=== PATIENT | male | born 1940 | race Hispanic/Latino ===

== ENCOUNTER 2016-12-14 09:36 | Outpatient (CLI) | payer MEDICARE ==
[2016-12-14 09:55] LABS: #Basophils 0.1 thou/uL (0.0-0.2); #Eosinphils 0.1 thou/uL (0.0-0.7); #Lymphocytes 1.3 thou/uL (1.20-3.40); #Monocytes 0.6 thou/uL (0.11-0.59); #Neutrophils 6.8 thou/uL (1.40-6.50); %Basophils 0.8 % (0.0-1.0); %Eosinophils 1.1 % (0.0-10.0); %Lymphocytes 14.9 % (21.0-51.0); %Monocytes 6.9 % (0.0-10.0); %Neutrophils 76.3 % (42.0-75.0); Hemoglobin 12.6 g/dL (14.0-18.0); Mean Corpuscular HGB CONC 33.5 g/dL (32.0-36.0); Mean Corpuscular Hemoglobin 30.1 pg (27.0-31.0); Mean Platelet Volume 7.4 fL (7.4-10.4); Platelet Count 211 thou/uL (130-400); RBC Distribution Width 12.2 % (11.5-14.5); Red Blood Cell (RBC) Count 4.18 mill/uL (4.70-6.10)
[2016-12-14 09:57] LABS: Hemoglobin A1c 6.8 % (4.0-6.0)
[2016-12-14 11:32] LABS: ALT (SGPT) 11 U/L (0-55); AST (SGOT) 10 U/L (5-34); Albumin 3.9 g/dL (3.4-4.8); Alkaline Phosphatase 97 U/L (40-150); Anion Gap 13 mmol/L (10-20); BUN (Urea Nitrogen) 19 mg/dL (8.4-25.7); Bilirubin, Total 0.4 mg/dL (0.2-1.2); Calc. Creatinine Clearance 0 mL/min (70-130); Calcium 9.3 mg/dL (7.8-10.44); Carbon Dioxide 26 mmol/L (23-31); Cardiac Risk 3.6 (Less than 4.5); Chloride 102 mmol/L (98-107); Cholesterol 120 mg/dL (< 200 Desired); Estimated GFR-MDRD 61; Globulin 3.3 g/dL (2.4-3.5); Glucose 152 mg/dL (83-110); HDL Cholesterol 33 mg/dL (>60 Neg Risk); LDL Cholesterol, Calculated 55 mg/dL; Potassium 3.9 mmol/L (3.5-5.1); Protein, Total 7.2 g/dL (5.8-8.1); Sodium 137 mmol/L (136-145); Triglycerides 160 mg/dL (Less than 150)
== END 2016-12-14 09:37 | disposition home or self-care (01) ==
LOC: MADLAB 09:36
PROVIDERS: ATTEND Family Medicine
DX: E11.9 Type 2 diabetes mellitus without complications (principal)
CPT/HCPCS: 36415; 80053; 80061; 83036; 85025

== ENCOUNTER 2017-01-27 09:31 | Outpatient (CLI) | payer MEDICARE ==
[2017-01-27 09:53] LABS: Hemoglobin A1c 6.8 % (4.0-6.0)
[2017-01-27 10:07] LABS: ALT (SGPT) 16 U/L (8-55); AST (SGOT) 12 U/L (5-34); Albumin 3.8 g/dL (3.4-4.8); Alkaline Phosphatase 94 U/L (40-150); Anion Gap 15 mmol/L (10-20); BUN (Urea Nitrogen) 24 mg/dL (8.4-25.7); Bilirubin, Total 0.4 mg/dL (0.2-1.2); Calc. Creatinine Clearance 0 mL/min (70-130); Calcium 9.4 mg/dL (7.8-10.44); Carbon Dioxide 26 mmol/L (23-31); Cardiac Risk 3.4 (Less than 4.5); Chloride 104 mmol/L (98-107); Cholesterol 126 mg/dl (< 200 Desired); Estimated GFR-MDRD 58; Globulin 3.7 g/dL (2.4-3.5); Glucose 152 mg/dL (83-110); HDL Cholesterol 37 mg/dL (>60 Neg Risk); LDL Cholesterol, Calculated 55 mg/dL; Potassium 4.1 mmol/L (3.5-5.1); Protein, Total 7.5 g/dL (5.8-8.1); Sodium 141 mmol/L (136-145); Triglycerides 172 mg/dL (Less than 150)
== END 2017-01-27 09:32 | disposition home or self-care (01) ==
LOC: MADLAB 09:31
PROVIDERS: ATTEND Family Medicine
DX: E11.9 Type 2 diabetes mellitus without complications (principal)
CPT/HCPCS: 36415; 80053; 80061; 83036

== ENCOUNTER 2017-05-12 09:03 | Outpatient (CLI) | payer MEDICARE ==
[2017-05-12 10:29] LABS: Anion Gap 14 mmol/L (10-20); BUN (Urea Nitrogen) 22 mg/dL (8.4-25.7); Calc. Creatinine Clearance 0 mL/min (70-130); Calcium 9.3 mg/dL (7.8-10.44); Carbon Dioxide 27 mmol/L (23-31); Chloride 99 mmol/L (98-107); Estimated GFR-MDRD 55; Glucose 146 mg/dL (83-110); Sodium 136 mmol/L (136-145)
== END 2017-05-12 09:04 | disposition home or self-care (01) ==
LOC: MADLAB 09:03
PROVIDERS: ATTEND Internal Medicine Cardiovascular Disease
DX: E11.9 Type 2 diabetes mellitus without complications (principal); E78.2 Mixed hyperlipidemia; I10 Essential (primary) hypertension
CPT/HCPCS: 36415; 80048

== ENCOUNTER 2021-08-11 02:51 | Emergency (ER) | payer MEDICARE ==
[2021-08-11] MEDS ORDERED: Nitroglycerin 2% Ointment 1 INCH/1 GM Packet ONE (03:17)
[2021-08-11] MEDS ORDERED: Aspirin Chewable 81 MG TAB ONE (03:17)
[2021-08-11 03:21] LABS: #Lymphocytes 0.6 thou/uL (1.20-3.40); #Monocytes 0.5 thou/uL (0.11-0.59); #Neutrophils 13.8 thou/uL (1.40-6.50); %Basophils 0.2 % (0.0-1.0); %Eosinophils 0.3 % (0.0-10.0); %Lymphocytes 3.7 % (21.0-51.0); %Monocytes 3.5 % (0.0-10.0); %Neutrophils 92.3 % (42.0-75.0); Hemoglobin 8.5 g/dL (14.0-18.0); Mean Corpuscular HGB CONC 31.8 g/dL (32.0-36.0); Mean Corpuscular Hemoglobin 26.6 pg (27.0-31.0); Mean Corpuscular Volume 83.6 fL (78.0-98.0); Mean Platelet Volume 4.7 fL (7.4-10.4); Platelet Count 303 thou/uL (130-400); RBC Distribution Width 12.9 % (11.5-14.5); White Blood Cell (WBC) Count 14.9 thou/uL (4.8-10.8)
[2021-08-11 03:44] LABS: ALT (SGPT) 49 U/L (8-55); AST (SGOT) 34 U/L (5-34); Albumin 3.1 g/dL (3.4-4.8); Alkaline Phosphatase 101 U/L (40-110); Anion Gap 19 mmol/L (10-20); BUN (Urea Nitrogen) 92 mg/dL (8.4-25.7); Bilirubin, Total 0.5 mg/dL (0.2-1.2); Calc. Creatinine Clearance 0 mL/min (70-130); Calcium 8.5 mg/dL (7.8-10.44); Carbon Dioxide 15 mmol/L (23-31); Chloride 102 mmol/L (98-107); Globulin 3.3 g/dL (2.4-3.5); Glucose 198 mg/dL (83-110); Magnesium 1.8 mg/dL (1.6-2.6); Protein, Total 6.4 g/dL (5.8-8.1); Sodium 129 mmol/L (136-145)
[2021-08-11 04:06] LABS: Potassium 6.6 mmol/L (3.5-5.1)
[2021-08-11] MEDS ORDERED: Dextrose 50% Abboject 50 ML SYRINGE ONE (04:22)
[2021-08-11] MEDS ORDERED: Furosemide 20 MG/2 ML VIAL ONE (04:22)
[2021-08-11] MEDS ORDERED: Insulin Regular 300 UNITS/3 ML VIAL ONE (04:22)
[2021-08-11 04:28] LABS: SARS-CoV-2 NAA Rapid Test DETECTED (NotDetected)
== END 2021-08-11 05:43 | disposition short-term general hospital (02) ==
LOC: MADERS 02:51
DX: U07.1 COVID-19 (principal); I20.0 Unstable angina; N17.9 Acute kidney failure, unspecified; D64.9 Anemia, unspecified; E87.5 Hyperkalemia; E87.1 Hypo-osmolality and hyponatremia; J18.9 Pneumonia, unspecified organism; I10 Essential (primary) hypertension; E11.9 Type 2 diabetes mellitus without complications; E78.5 Hyperlipidemia, unspecified; Z87.891 Personal history of nicotine dependence; Z79.84 Long term (current) use of oral hypoglycemic drugs
CPT/HCPCS: 0240U; 71045; 80053; 82962; 83605; 83735; 83880; 84484; 85025; 87040; 93005; 36416; 96365; 96366; 96375; 99292; J1815; J1940; J1956

== ENCOUNTER 2021-11-12 00:43 | Emergency (ER) | payer MEDICARE | END 2021-11-12 01:20 | disposition home or self-care (01) | LOC: MADERS 00:43 | DX: T46.1X1A Poisoning by calcium-channel blockers, accidental (unintentional), initial encounter (principal); I95.9 Hypotension, unspecified; E11.65 Type 2 diabetes mellitus with hyperglycemia; I10 Essential (primary) hypertension; E78.5 Hyperlipidemia, unspecified; Z79.82 Long term (current) use of aspirin; Z79.84 Long term (current) use of oral hypoglycemic drugs; Z79.899 Other long term (current) drug therapy; Z87.891 Personal history of nicotine dependence | CPT/HCPCS: 36416; 99284 ==